=== PATIENT | male | born 1930 | race Asian ===

== ENCOUNTER 2016-07-06 21:08 | Inpatient (IN) | payer OTHER ==
[~2016-07-06] VITALS: Ht 170.2 cm; Wt 54.4 kg
[2016-07-06] MEDS ORDERED: MECLIZINE HYDRO25 M1 PO (21:41)
[2016-07-06] MEDS ORDERED: ASPIRIN325 MG PO (21:42)
[2016-07-06] MEDS ORDERED: DOC-Q-LACE100 MG PO (21:42)
[2016-07-06] MEDS ORDERED: LOSARTAN POTASS50 M1 PO (21:42)
[2016-07-06] MEDS ORDERED: MOBIC7.5 MG PO (21:42)
[2016-07-06] MEDS ORDERED: LIPITOR10 MG PO (21:43)
[2016-07-06] MEDS ORDERED: LEVOCETIRIZINE D5 M1 PO (21:43)
[2016-07-06] MEDS ORDERED: IRON325 M4 PO (21:43)
[2016-07-06] MEDS ORDERED: METFORMIN ER500 M1 PO (21:44)
[2016-07-06] MEDS ORDERED: GLIPIZIDE5 M2 PO (21:44)
[2016-07-06] MEDS ORDERED: NEXIUM40 MG PO (21:44)
[2016-07-06 21:59] LABS: BASOPHIL % 0.4 % (0-2); PLATELET COUNT 154 x10^3mcL (130-400)
[2016-07-06 22:13] LABS: CALCIUM 8.3 mg/dL (8.5-10.1); CARBON DIOXIDE 22.3 mmol/L (21-32); CHLORIDE SERUM 100 mmol/L (98-107); CREATININE SERUM 1.5 mg/dL (0.7-1.3); GLUCOSE SERUM 382 mg/dL (74-106); POTASSIUM SERUM 4.6 mmol/L (3.5-5.1); SODIUM SERUM 132 mmol/L (136-145)
[2016-07-06 22:18] LABS: ALBUMIN 3.3 g/dL (3.4-5.0); ALKALINE PHOSPHATASE 91 U/L (46-116); ALT/SGPT 83 U/L (16-63); AST/SGOT 101 U/L (15-37); BILIRUBIN TOTAL 0.33 mg/dL (0.20-1.00); TOTAL PROTEIN, SERUM 6.7 g/dL (6.4-8.2)
[2016-07-07] VITALS (7 sets, daily range): BP systolic 134–154; BP diastolic 75–89; Ht 170.2 cm; Wt 54.4 kg
[2016-07-07 03:08] LABS: MAGNESIUM 1.5 mg/dL (1.8-2.4); PHOSPHOROUS 3.8 mg/dL (2.5-4.9)
[2016-07-07 03:16] LABS: FREE T4 1.16 ng/dL (0.76-1.46); FREE THYROXINE INDEX 3.3 ug/dL (1.4-4.5); T3 TOTAL 0.79 ng/mL; T4(THYROXINE) 9.2 ug/dL (4.7-13.3)
[2016-07-07 04:48] LABS: UA SPECIFIC GRAVITY >=1.030 (1.005-1.035); microscopic required? YES; urine erythrocyte 1+ (NEGATIVE)
[2016-07-08 05:49] VITALS: BP 133/96
[2016-07-08 06:11] LABS: PLATELET COUNT 164 x10^3mcL (130-400)
[2016-07-08 06:36] LABS: CALCIUM 8.3 mg/dL (8.5-10.1); CARBON DIOXIDE 24.6 mmol/L (21-32); CHLORIDE SERUM 99 mmol/L (98-107); CREATININE SERUM 1.7 mg/dL (0.7-1.3); GLUCOSE SERUM 233 mg/dL (74-106); MAGNESIUM 1.7 mg/dL (1.8-2.4); PHOSPHOROUS 4.2 mg/dL (2.5-4.9); POTASSIUM SERUM 4.6 mmol/L (3.5-5.1); SODIUM SERUM 131 mmol/L (136-145)
[2016-07-08 06:51] LABS: BASOPHIL % 0 % (0-2)
[2016-07-08 08:53] VITALS: BP 138/63
[2016-07-08 13:03] VITALS: BP 131/77
[2016-07-08 17:09] VITALS: BP 148/9
[2016-07-08 21:31] VITALS: BP 150/87
[2016-07-09 04:50] LABS: PLATELET COUNT 171 x10^3mcL (130-400); RED CELL DISTRIBUTION WIDTH 13.1 % (11.5-14.5)
[2016-07-09 04:56] LABS: CALCIUM 7.9 mg/dL (8.5-10.1); CARBON DIOXIDE 24.8 mmol/L (21-32); CHLORIDE SERUM 98 mmol/L (98-107); CREATININE SERUM 1.8 mg/dL (0.7-1.3); MAGNESIUM 2.4 mg/dL (1.8-2.4); SODIUM SERUM 132 mmol/L (136-145)
[2016-07-09 04:57] LABS: ALBUMIN 2.8 g/dL (3.4-5.0); GLUCOSE SERUM 52 mg/dL (74-106)
[2016-07-09 05:05] LABS: BASOPHIL % 0 % (0-2)
[2016-07-09 05:43] VITALS: BP 141/81
[2016-07-09 10:30] VITALS: BP 142/86
[2016-07-09 13:45] VITALS: BP 136/70
[2016-07-09 17:20] VITALS: BP 132/80
[2016-07-09 22:05] VITALS: BP 142/84
[2016-07-10 06:17] VITALS: BP 126/75
[2016-07-10 06:17] LABS: PLATELET COUNT 174 x10^3mcL (130-400); RED CELL DISTRIBUTION WIDTH 13.4 % (11.5-14.5)
[2016-07-10 06:24] LABS: CALCIUM 7.8 mg/dL (8.5-10.1); CARBON DIOXIDE 23.6 mmol/L (21-32); CHLORIDE SERUM 95 mmol/L (98-107); CREATININE SERUM 1.9 mg/dL (0.7-1.3); GLUCOSE SERUM 176 mg/dL (74-106); POTASSIUM SERUM 5.1 mmol/L (3.5-5.1); SODIUM SERUM 128 mmol/L (136-145)
[2016-07-10 06:54] LABS: BASOPHIL % 0 % (0-2)
[2016-07-10 09:25] VITALS: BP 134/78
[2016-07-10 13:32] VITALS: BP 118/69
[2016-07-10 17:05] VITALS: BP 118/72
[2016-07-10 20:05] VITALS: BP 129/75
[2016-07-10 21:47] VITALS: BP 116/66
[2016-07-11 01:22] VITALS: BP 148/81
== END 2016-07-11 06:35 | disposition expired | DRG 871 ==
LOC: ED 21:08 → DU 07-07 00:09 → IC 07-11 03:40
PROVIDERS: Emergency Medicine; Family Medicine; ADMIT Family Medicine
DX: A41.9 Sepsis, unspecified organism (principal); J69.0 Pneumonitis due to inhalation of food and vomit; I50.41 Acute combined systolic (congestive) and diastolic (congestive) heart failure; N17.0 Acute kidney failure with tubular necrosis; I21.4 Non-ST elevation (NSTEMI) myocardial infarction; J96.01 Acute respiratory failure with hypoxia; E43 Unspecified severe protein-calorie malnutrition; E87.1 Hypo-osmolality and hyponatremia; Z68.1 Body mass index [BMI] 19.9 or less, adult; I42.0 Dilated cardiomyopathy; J44.1 Chronic obstructive pulmonary disease with (acute) exacerbation; D68.69 Other thrombophilia; I11.0 Hypertensive heart disease with heart failure; I48.0 Paroxysmal atrial fibrillation; R65.20 Severe sepsis without septic shock; E11.51 Type 2 diabetes mellitus with diabetic peripheral angiopathy without gangrene; E11.65 Type 2 diabetes mellitus with hyperglycemia; E83.51 Hypocalcemia; E83.42 Hypomagnesemia; K21.9 Gastro-esophageal reflux disease without esophagitis; D64.9 Anemia, unspecified; E03.9 Hypothyroidism, unspecified; E78.5 Hyperlipidemia, unspecified; Z79.82 Long term (current) use of aspirin; Z87.891 Personal history of nicotine dependence; Z79.84 Long term (current) use of oral hypoglycemic drugs
CPT/HCPCS: 36600; 82962; 83880; 84439; 86480; 87107; 87116; 87206; 87804; C9113; J0171; J1200; J1644; J1815; J1940; J1956; J2405; J2920; J2930; J3475; J3490; J7030; J7613; J7620; J7644; Q0092